=== PATIENT | male | born 1955 | race Caucasian/White ===

== ENCOUNTER 2021-03-06 17:18 | Emergency (ER) | payer BC ==
[2021-03-06 17:29] VITALS: BP 167/87; PULSE 97
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
== END 2021-03-06 17:49 | disposition home or self-care (01) ==
LOC: DL.ED 17:18
DX: S61.051A Open bite of right thumb without damage to nail, initial encounter (principal); Z86.711 Personal history of pulmonary embolism; Z88.0 Allergy status to penicillin; Z88.5 Allergy status to narcotic agent; Z79.01 Long term (current) use of anticoagulants; Z79.899 Other long term (current) drug therapy; W55.01XA Bitten by cat, initial encounter
CPT/HCPCS: 99283

== ENCOUNTER 2021-11-04 15:14 | Observation (INO) | payer BC ==
[2021-11-04] MEDS ORDERED: Docusate Sodium 100 MG Cap PO PRN (15:48)
[2021-11-04] MEDS ORDERED: Acetaminophen/HYDROcodone 325-5 MG Tab PO PRN (15:48)
[2021-11-04] MEDS ORDERED: Ondansetron 4 MG/2 ML SDV IVPUSH PRN (15:48)
[2021-11-04] MEDS ORDERED: Acetaminophen 325 MG Tab PO PRN (15:48)
[2021-11-04] MEDS: Enoxaparin 40 MG/0.4 ML Syringe SUBCUT SCH (16:42)
[2021-11-04] MEDS ORDERED: Ibuprofen 400 MG Tab PO PRN (21:32)
[2021-11-05] MEDS ORDERED: Lidocaine 1% 50 MG/5 ML Syringe IVPUSH ONE (09:01)
[2021-11-05] MEDS: Enoxaparin 40 MG/0.4 ML Syringe SUBCUT SCH (09:36)
[2021-11-05 10:26] LABS: ANION GAP 10.1 mEq/L (7-13)
[2021-11-05] MEDS: Bacitracin/Neomycin/Polymyxin B Oint 28.4 GM Tube TOP SCH ×2 (12:00→21:31)
[2021-11-05] MEDS: Ibuprofen 600 MG Tab PO PRN ×2 (12:01→19:26)
[2021-11-06] MEDS: Ibuprofen 600 MG Tab PO PRN (04:17)
[2021-11-06 07:04] LABS: ANION GAP 12.5 mEq/L (7-13)
[2021-11-06 08:27] VITALS: BP 125/72; PULSE 62
[2021-11-06] MEDS: Enoxaparin 40 MG/0.4 ML Syringe SUBCUT SCH (09:22)
[2021-11-06] MEDS: Bacitracin/Neomycin/Polymyxin B Oint 28.4 GM Tube TOP SCH (10:21)
== END 2021-11-06 10:40 | disposition home or self-care (01) ==
LOC: DL.MS 15:14
PROVIDERS: ADMIT Internal Medicine; ATTEND Internal Medicine
DX: L03.113 Cellulitis of right upper limb (principal); Z79.899 Other long term (current) drug therapy; Z79.2 Long term (current) use of antibiotics; Z98.890 Other specified postprocedural states; Z79.01 Long term (current) use of anticoagulants; Z20.822 Contact with and (suspected) exposure to COVID-19; Z88.1 Allergy status to other antibiotic agents; Z88.5 Allergy status to narcotic agent
CPT/HCPCS: 36415; 80048; 80202; 85025; 86140; 87040; 87070; 87077; 87186; 87635; 96365; 96366; A9270; G0378; J1650; J3370; J7050; 10060; 99217; 99218; 99224; U0002